=== PATIENT | female | born 1965 | race Caucasian/White ===

== ENCOUNTER 2021-03-30 10:17 | Outpatient (RCR) | payer OTHER, SELFPAY | END 2021-04-09 23:59 | LOC: NS 10:17 | PROVIDERS: Visit Provider Family Medicine | DX: Z71.3 Dietary counseling and surveillance (principal); E66.01 Morbid (severe) obesity due to excess calories; Z68.43 Body mass index [BMI] 50.0-59.9, adult; E11.9 Type 2 diabetes mellitus without complications | CPT/HCPCS: 97802 ==

== ENCOUNTER 2021-04-27 10:58 | Outpatient (RCR) | payer OTHER, SELFPAY | END 2021-05-10 23:59 | LOC: NS 10:58 | PROVIDERS: Visit Provider Family Medicine | DX: Z71.3 Dietary counseling and surveillance (principal); E66.01 Morbid (severe) obesity due to excess calories; Z68.43 Body mass index [BMI] 50.0-59.9, adult; E11.9 Type 2 diabetes mellitus without complications | CPT/HCPCS: 97803 ==

== ENCOUNTER 2021-05-25 11:30 | Outpatient (RCR) | payer OTHER, SELFPAY | END 2021-06-09 23:59 | LOC: NS 11:30 | PROVIDERS: Visit Provider Family Medicine | DX: Z71.3 Dietary counseling and surveillance (principal); E66.01 Morbid (severe) obesity due to excess calories; Z68.43 Body mass index [BMI] 50.0-59.9, adult; E11.9 Type 2 diabetes mellitus without complications | CPT/HCPCS: 97803 ==

== ENCOUNTER 2021-07-06 15:26 | Outpatient (RCR) | payer OTHER, SELFPAY | END 2021-07-10 23:59 | LOC: NS 15:26 | PROVIDERS: Visit Provider Family Medicine | DX: Z71.3 Dietary counseling and surveillance (principal); E66.01 Morbid (severe) obesity due to excess calories; Z68.43 Body mass index [BMI] 50.0-59.9, adult; E11.9 Type 2 diabetes mellitus without complications | CPT/HCPCS: 97803 ==

== ENCOUNTER 2021-08-03 14:12 | Outpatient (RCR) | payer OTHER, SELFPAY | END 2021-08-10 23:59 | LOC: NS 14:12 | PROVIDERS: Visit Provider Family Medicine | DX: Z71.3 Dietary counseling and surveillance (principal); E66.01 Morbid (severe) obesity due to excess calories; Z68.43 Body mass index [BMI] 50.0-59.9, adult; E11.9 Type 2 diabetes mellitus without complications ==

== ENCOUNTER 2024-08-15 23:57 | Emergency (ER) | payer MEDICAID, SELFPAY ==
[2024-08-15 23:59] VITALS: BP 189/73; PULSE 63; RESP 18; TEMP 36.3; O2SAT 99; BMI 50.5
[2024-08-16] VITALS (11 sets, daily range): BP systolic 142–158; BP diastolic 58–82; PULSE 54–69; RESP 11–18; TEMP 36.7; O2SAT 95–100
--- NOTE | 2024-08-16 00:12 | EDS_ITS ---
HPI History of Present Illness Chief Complaint: Overdose Informant: patient Onset/Context/Timing Onset: Today Narrative Narrative: 59-year-old female blind in her left eye, history of diabetes and hypertension. Currently is helping care for her father who has dementia. They do 24-hour shifts. Since she has been tired. Tonight she took her normal medications at 11 PM which include meloxicam, Cartia, metformin, losartan and pravastatin. She refilled her pill bottle and accidentally took them again. She denies any current symptoms. She and her called [employer] and they told her to come in. Prior similar symptoms: No Recent Illness/Hospitalization: No PFSH PFS Medical History Arthritis Diabetes type 2 Hyperlipemia Hypertension Home Medications ?Medication ?Instructions ?Recorded ?Last Taken ?Type diltiazem HCl 300 mg 300 mg PO QHS 08/16/24 Unkno wn History capsule,extended release 24 hr (Cartia XT) glimepiride 4 mg tablet 4 mg PO DAILY 08/16/24 Unkno wn History hydrochlorothiazide 25 mg tablet 25 mg PO DAILY Unknown History losartan 100 mg tablet 100 mg PO QHS 08/16/24 Unkno wn History meloxicam 15 mg tablet 15 mg PO QHS 08/16/24 Unknow n History metformin 1,000 mg tablet 1,000 mg PO BID 08/16/24 Unk nown History pravastatin 20 mg tablet 20 mg PO QHS 08/16/24 Unknow n History Allergy/AdvReac Type Severity Reaction Status Date / Time lisinopril AdvReac Mild cough Verified 08/15/24 23:59 Social History Smoking Status: Never smoker ROS ROS ED ROS Narrative Denies recent illness. Constitutional Constitutional ED: Denies chills or fever(s) ENT ENT ED: Denies ear pain Cardiovascular Cardiovascular: Denies chest pain Respiratory/Chest Respiratory/Chest: Denies cough or dyspnea Gastrointestinal Gastrointestinal: Denies abdominal pain Genitourinary Genitourinary ED: Denies dysuria or hematuria Musculoskeletal Musculoskeletal: Denies arthralgias or back pain Integumentary Denies abscess or Abrasions Neurologic Neurologic: Denies headache(s) Psychiatric Psychiatric: Denies anxiety or depression Endocrine Endocrinology: Denies cold intolerance Hematologic/Lymphatic Hematologic/Lymphatic: Reports none Allergic/Immunologic Allergic/Immunologic ED: Denies mouth swelling, tongue swelling or urticaria EXAM Physical Exam Narrative Exam Narrative: 59-year-old female vital signs are stable she is afebrile she does not look septic toxic. She is no distress. Her initial blood pressure was 189/73. H EENT exam left eye she is legally blind. She has a growth on her cornea. Extra motions are intact. No facial droop. Moist mucous membranes. Lungs clear to auscultation bilaterally. Heart rate about 63 no murmur. Chest wall ribs nontender. Abdomen soft nontender. Moving all 4 extremities. Nontender no edema. Normal strength and range of motion. Neurologically she is awake and alert no focal motor deficits. Exam is benign. Const Vital Signs: 08/15/24 23:59 08/16/24 00:04 08/16/24 00:40 Temperature 97.4 F L Temperature Source Temporal Pulse Rate 63 62 Respiratory Rate 18 15 Respiratory Effort Normal Respiratory Pattern Normal Blood Pressure 189/73 H Blood Pressure Mean 111 Pulse Ox 99 97 Oxygen Delivery Method Room Air 08/16/24 00:45 08/16/24 01:00 08/16/24 01:15 Temperature Temperature Source Pulse Rate 57 L 56 L 54 L Respiratory Rate 15 11 L 12 Respiratory Effort Respiratory Pattern Blood Pressure 153/59 H 153/58 H 152/61 H Blood Pressure Mean 87 85 86 Pulse Ox 98 99 98 Oxygen Delivery Method 08/16/24 01:30 08/16/24 01:45 08/16/24 02:00 Temperature Temperature Source Pulse Rate 55 L 54 L 59 L Respiratory Rate 11 L 13 14 Respiratory Effort Respiratory Pattern Blood Pressure 151/60 H 145/61 H 142/62 H Blood Pressure Mean 87 85 85 Pulse Ox 100 98 95 Oxygen Delivery Method 08/16/24 02:15 08/16/24 04:00 Temperature Temperature Source Pulse Rate 61 68 Respiratory Rate 15 16 Respiratory Effort Respiratory Pattern Blood Pressure 145/62 H 148/82 H Blood Pressure Mean 82 104 Pulse Ox 96 98 Oxygen Delivery Method Room Air Positive well nourished and well developed; Negative for cachectic, contractures or unkempt General Appearance ED: well developed and NAD; Negative for unkempt, cachectic, contractures, cyanotic, diaphoretic or pallor Nutritional Appearance: Negative for cachectic HEENT Reports moist mucous membranes Eyes Negative for PERRL Eyes Narrative: Left eye growth. Legally blind in the left. Neck no lymphadenopathy, supple and no JVD Chest Wall inspection of chest normal and palpation of chest normal Resp normal respiratory effort and clear to auscultation bilaterally Cardio regular rate, regular rhythm, S1 normal heart sound, S2 normal heart sound and no murmurs GI normal to inspection, nondistended, normoactive bowel sounds, non-tender, non- distended and no masses Inspection: Negative for abdominal distention Palpation: soft; Negative for tender, guarding or rebound tenderness present Back/Spine no CVA tenderness Extremity normal to inspection General Extremety ED: Negative for edema or tenderness General Extremity: Negative for edema Neuro oriented x3 Neuro Narrative: Blind left eye. Pupil nonreactive. Sensorium / Orientation: alert Motor Exam: strength 5/5 throughout Psych mental status grossly normal Appearance: Negative for unkempt Mood & Affect: Negative for depressed, anxious or tearful Skin no rashes or lesions noted, no wounds and skin turgor normal General Skin Exam: elasticity normal; Negative for jaundice or pallor Trauma: Negative for abrasion Wounds: Negative for wounds noted MDM MDM MDM Narrative Medical decision making narrative: 59-year-old diabetic hypertensive female accidentally took 2 dosages of her medications tonight 11 11:15 PM. She is currently having no symptoms. I gave her the option that we could aggressively give her charcoal or we could observe her. She would choose to be observed and treated if symptoms occur or vital signs change. Will place an IV. Check a PGT. Observe the patient on the monitor. Repeat exam at 2:52 AM patient is doing well. Resting comfortably in bed. Cur rent blood pressures are 138/60. Heart rates in the low 60s. Repeat exam patient is doing well at 6:10 AM. Resting comfortably. Vital signs are stable. Recent repeat blood sugar was good. She and her are comfortable being discharged. She said she needs to go because she has to take I believe her father to doctors appointments in [place]. She knows to hold her morning medications this morning. Watch her blood sugar and blood pressure closely. If she feels worse to return to the nearest emergency department. She had a snack here. And is going to eat at home. History & Record Review Discussion w/independent historian: Patient Additional record(s) reviewed:: Prior inpatient record, Prior outpatient record, Prior ED visit and Prior labs Lab Data Attestation: I reviewed the patient's lab results. Lab results narrative: BGT is 275. Labs: Laboratory Results - last 24 hr 08/16/24 08/16/24 00:16 03:53 POC Glucose 275 H 128 H Discharge Plan Triage Chief Complaint: Overdose ED Provider: Neo Nichols Dx/Rx/DC Orders Clinical Impression: Accidental medication overdose, History of diabetes mellitus, History of hypertension Instructions: ED Accidental Ingestion ... Prescriptions: No Action diltiazem HCl [Cartia XT] 300 mg capsule,extended release 24hr 300 mg PO QHS losartan 100 mg tablet 100 mg PO QHS meloxicam 15 mg tablet 15 mg PO QHS metformin 1,000 mg tablet 1,000 mg PO BID glimepiride 4 mg tablet 4 mg PO DAILY pravastatin 20 mg tablet 20 mg PO QHS hydrochlorothiazide 25 mg tablet 25 mg PO DAILY Primary Care Provider: Og Wallace Referrals: Og Wallace MD [Primary Care Provider] - As Needed Activity Restrictions/Additional Instructions: Take your medications as prescribed today. Watch your blood sugar closely. Watch your blood pressure closely. Return if feeling worse. Follow-up with your doctor as needed. Print Language: Polish Disposition Disposition: Home, Self Care
[2024-08-16 00:34] LABS: Bedside Glucose 275 mg/dL (74-106)
[2024-08-16 04:13] LABS: Bedside Glucose 128 mg/dL (74-106)
== END 2024-08-16 06:17 | disposition home or self-care (01) ==
PROVIDERS: Emergency Provider Emergency Medicine; PCP Family Medicine; Visit Provider Emergency Medicine
DX: T39.391A Poisoning by other nonsteroidal anti-inflammatory drugs [NSAID], accidental (unintentional), initial encounter (principal); E11.9 Type 2 diabetes mellitus without complications; T46.1X1A Poisoning by calcium-channel blockers, accidental (unintentional), initial encounter; T38.3X1A Poisoning by insulin and oral hypoglycemic [antidiabetic] drugs, accidental (unintentional), initial encounter; T46.5X1A Poisoning by other antihypertensive drugs, accidental (unintentional), initial encounter; I10 Essential (primary) hypertension; T46.6X1A Poisoning by antihyperlipidemic and antiarteriosclerotic drugs, accidental (unintentional), initial encounter; H54.8 Legal blindness, as defined in USA; E78.5 Hyperlipidemia, unspecified; M19.90 Unspecified osteoarthritis, unspecified site; Z79.84 Long term (current) use of oral hypoglycemic drugs; Z79.899 Other long term (current) drug therapy
CPT/HCPCS: 82962; 99285; A4216